=== PATIENT | male | born 1975 | race Caucasian/White ===

== ENCOUNTER 2017-03-07 23:00 | Emergency (ER) | payer OTHER ==
[2017-03-07 23:16] VITALS: BP 127/71; PULSE 72; TEMP 98; BMI 24.5
[2017-03-07] MEDS ORDERED: TETANUS AND DIPHTHERIA TOXOID 0.5 ML DISP.SYRIN IM ONE (23:41)
--- NOTE | 2017-03-07 23:41 | PDOC ---
History of Present Illness - General Chief Complaint: Laceration Stated Complaint: LACERATION Time Seen by Provider: 03/07/17 23:22 History Source: Patient Exam Limitations: No Limitations - History of Present Illness Initial Comments: 03/08/17 00:02 41-year-old male with no medical history right hand dominant presents to the emergency department complaining of a laceration to the right third lateral mid phalangeal laceration. Patient states while putting together a metal shelf, the edge cut his finger. Bleeding controlled with direct pressure prior to his arrival. Patient denies extremity numbness or tingling sensation. Patient denies any other complaints. Last tetanus unknown. Timing/Duration: reports: just prior to arrival Location: reports: other (right 3rd digit) Past History - Past Medical History Allergies/Adverse Reactions: Allergies Allergy/AdvReac Type Severity Reaction Status Date / Time Penicillins Allergy Verified 03/07/17 23:15 Home Medications: Ambulatory Orders NK [No Known Home Medication] 03/07/17 COPD: No - Immunization History Immunization Up to Date: No - Suicide/Smoking/Psychosocial Hx Smoking History: Never smoked Have you smoked in the past 12 months: No Review of Systems - Review of Systems Able to Perform ROS?: Yes Comments:: 03/07/17 23:59 right 3rd digit Laceration lat mid phalanx neg ext numbness/tingling sensation Is the patient limited [place]ish proficient: No *Physical Exam - Vital Signs Last Vital Signs Temp Pulse Resp BP Pulse Ox 98 F 72 16 127/71 98 03/07/17 23:14 03/07/17 23:14 03/07/17 23:14 03/07/17 23:14 03/07/17 23:14 - Physical Exam Comments: 03/07/17 23:59 right 3th digit mid lat aspect 2.5cm V shape lac cap refill <2sec 2 point discrimination intact F.R>O>M> Strength 5+/5 flexion/extension Procedure: right 3th digit mid lat aspect 2.5cm V shape lac Betadine prep to base of volar 3rd digit 1% lidocaine 2cc digital block NS irrigation Wound explored with qtip. no tendon exposed betadine prep (4) 5.0 nylon interrupted Bacitracin Bandaid Medical Decision Making - Medical Decision Making 03/08/17 00:03 41-year-old right hand dominant, 9 diabetic presents complaining of a laceration to the right lateral mid phalangeal region from a metal edge that occurred at home approximately one hour ago. Wound explored and no tendons were visualized. 2 point discrimination intact. Capillary refill less than 2 seconds. Suture repaired with 5-0 nylon simple interrupted/bacitracin/Band-Aid. Wound check in 2 days advised on discharge. Suture removal in 12 days. *DC/Admit/Observation/Transfer Diagnosis at time of Disposition: Finger laceration Qualifiers: Encounter type: initial encounter Finger: middle finger Damage to nail status: without damage Foreign body presence: without foreign body Laterality: right Qualified Code(s): S61.212A - Laceration without foreign body of right middle finger without damage to nail, initial encounter - Discharge Dispostion Disposition: HOME Condition at time of disposition: Stable Admit: No - Referrals Referrals: Nita Ralph MD [Primary Care Provider] - - Patient Instructions Printed Discharge Instructions: DI for Laceration Repair Additional Instructions: Keep the incision clean and dry for 24 hours. After 24 hours, you may allow the soap and water to rinse off your incision. Avoid direct pressure of the water to the incision. Pat the incision dry with a clean clothe. Apply a small amount of bacitracin onto the incision. Cover the incision loosely with a bandaid. Take tylenol/motrin as needed for pain. Follow up with your physician or the ER in 48 hours for a wound check. Return to the ER if you notice red streaks, increase redness/swelling/severe pain to the incision. Suture removal in days. - Post Discharge Activity
== END 2017-03-08 00:12 | disposition home or self-care (01) ==
LOC: JERFT 23:00
PROC: 3E0234Z Introduction of Serum, Toxoid and Vaccine into Muscle, Percutaneous Approach (ICD-10-PCS; principal; 2017-03-07)
PROC: 0HQFXZZ Repair Right Hand Skin, External Approach (ICD-10-PCS; 2017-03-07)
DX: S61.212A Laceration without foreign body of right middle finger without damage to nail, initial encounter (principal); W26.8XXA Contact with other sharp object(s), not elsewhere classified, initial encounter; Y93.89 Activity, other specified; Y92.89 Other specified places as the place of occurrence of the external cause
CPT/HCPCS: 99281-25

== ENCOUNTER 2017-03-09 21:58 | Emergency (ER) | payer OTHER ==
[2017-03-09 22:11] VITALS: BP 133/79; PULSE 67; TEMP 98.3; BMI 25.1
--- NOTE | 2017-03-09 23:48 | PDOC ---
Suture Removal/Wound Check HPI - History of Present Illness Chief Complaint: Revisit,Wound Recheck Stated Complaint: FOLLOW UP Time Seen by Provider: 03/09/17 23:34 History Source: Yes: Patient Date of Last ED visit: 03/07/17 - Previous ED Treatment Type of procedure performed on last visit: Yes: Laceration Repair Tetanus Immunization: Yes: Up to Date, Given at last ED visit Past History - Past Medical History Allergies/Adverse Reactions: Allergies Allergy/AdvReac Type Severity Reaction Status Date / Time Penicillins Allergy Verified 03/09/17 22:11 Home Medications: Ambulatory Orders NK [No Known Home Medication] 03/07/17 COPD: No - Immunization History Immunization Up to Date: No - Suicide/Smoking/Psychosocial Hx Smoking History: Never smoked Have you smoked in the past 12 months: No Information on smoking cessation initiated: No Hx Alcohol Use: No Drug/Substance Use Hx: No Substance Use Type: None Suture Removal/Wound Check PE - Physical Exam Laceration/Wound Check Symptoms: reports: None. denies: Pain, Fever, Chills, Redness, Discharge, Bleeding, Numbness, Weakness, Improved, Persistent, Worsening, Resolved, Other Comment Current Severity Level: None Maximum Severity Level: None Location of Laceration/Wound: right: Finger (third digit. wound clean dry suture intact. no erythema) *Review of Systems - Review of Systems Able to Perform ROS?: Yes Integumentary: Yes: Other (laceration) Medical Decision Making - Medical Decision Making 03/09/17 23:51 wound well healing. strict return precautions reviewed with patient. *DC/Admit/Observation/Transfer Diagnosis at time of Disposition: Visit for wound check - Discharge Dispostion Disposition: HOME - Referrals Referrals: Nita Ralph MD [Primary Care Provider] - - Patient Instructions Printed Discharge Instructions: DI for Wound Infection Additional Instructions: keep wound clean and dry. monitor for signs of infection. follow up with your doctor for suture removal - Post Discharge Activity
== END 2017-03-09 23:50 | disposition home or self-care (01) ==
LOC: JER 21:58 → JERFT 21:58 → JER 23:50
DX: Z09 Encounter for follow-up examination after completed treatment for conditions other than malignant neoplasm (principal)
CPT/HCPCS: 99281-25

== ENCOUNTER 2022-07-01 10:05 | Emergency (ER) | payer OTHER ==
[2022-07-01 10:19] VITALS: BMI 27.3
[2022-07-01 11:36] LABS: BASO % 0.8 % (0-2.0); EOS % 0.9 % (0-4.5); HEMATOCRIT 43.1 % (35.4-49); HEMOGLOBIN 15.2 GM/dL (11.7-16.9); MCH 32.6 pg (25.7-33.7); MCHC 35.2 g/dl (32.0-35.9); MEAN CELL VOLUME 92.5 fl (80-96); MEAN PLT VOLUME 9.6 fl (7.5-11.1); MONO % 7.5 % (3.8-10.2); NEUT % 58.8 % (42.8-82.8); PLATELET COUNT 174 10^3/uL (134-434); RBC 4.66 M/mm3 (4.00-5.60); RDW 13.1 % (11.9-15.9); WHITE BLOOD COUNT 4.7 K/mm3 (4.0-10.0)
[2022-07-01 11:45] LABS: INR 1.16 (0.83-1.09); PROTHROMBIN TIME (PATIENT) 13.4 SEC (9.7-13.0)
[2022-07-01 11:48] LABS: ACTIVATED PTT 36.1 SECONDS (25.2-36.5)
[2022-07-01 11:53] LABS: POTASSIUM 4.4 mmol/L (3.5-5.1)
[2022-07-01 11:55] LABS: CALCIUM 8.7 mg/dL (8.5-10.1)
[2022-07-01 11:56] LABS: ALBUMIN 3.6 g/dl (3.4-5.0)
[2022-07-01 12:00] LABS: BILIRUBIN,TOTAL 0.7 mg/dL (0.2-1); TOT PROT 6.8 g/dl (6.4-8.2)
[2022-07-01 14:07] VITALS: BP 110/71; PULSE 82; RESP 18; TEMP 98.1
== END 2022-07-01 14:07 | disposition home or self-care (01) ==
LOC: JER 10:05
DX: I48.91 Unspecified atrial fibrillation (principal); R07.9 Chest pain, unspecified
CPT/HCPCS: 36415; 71046-TC-FY; 80053; 84439; 84443; 84484; 85025; 85610; 85730; 93005; 93010; 99285-25